=== PATIENT | female | born 1975 | race Caucasian/White ===

== ENCOUNTER 2018-01-03 18:35 | Emergency (ER) | payer BC, OTHER | END 2018-01-03 20:40 | disposition home or self-care (01) | LOC: MADERS 18:35 | DX: S39.82XA Other specified injuries of lower back, initial encounter (principal); F31.9 Bipolar disorder, unspecified; F17.210 Nicotine dependence, cigarettes, uncomplicated; X50.1XXA Overexertion from prolonged static or awkward postures, initial encounter; Z79.899 Other long term (current) drug therapy | CPT/HCPCS: 99406 ==

== ENCOUNTER 2020-10-27 17:45 | Emergency (ER) | payer BC, SELFPAY ==
[2020-10-27] MEDS ORDERED: HYDROcodone/Acetaminophen 5/325 mg Tablet ONE ×2 (19:23→21:11)
[2020-10-27] MEDS ORDERED: Ketorolac Tromethamine 30 MG/ML VIAL ONE (21:11)
== END 2020-10-27 21:41 | disposition home or self-care (01) ==
LOC: MADERS 17:45
DX: S30.0XXA Contusion of lower back and pelvis, initial encounter (principal); E03.9 Hypothyroidism, unspecified; F17.210 Nicotine dependence, cigarettes, uncomplicated; Z79.899 Other long term (current) drug therapy; W10.9XXA Fall (on) (from) unspecified stairs and steps, initial encounter
CPT/HCPCS: 74176; 96372; J1885

== ENCOUNTER 2023-04-29 11:56 | Emergency (ER) | payer SELFPAY ==
[2023-04-29] MEDS ORDERED: Ondansetron PF 4 MG/2 ML Vial ONE (13:00)
[2023-04-29] MEDS ORDERED: Sodium Chloride 0.9% 1,000 ML ONE (13:00)
[2023-04-29 13:03] LABS: #Basophils 0.1 thou/uL (0.0-0.2); #Eosinphils 0.1 thou/uL (0.0-0.7); #Lymphocytes 1.9 thou/uL (1.20-3.40); #Monocytes 0.3 thou/uL (0.11-0.59); #Neutrophils 6.3 thou/uL (1.40-6.50); %Basophils 1.1 % (0.0-1.0); %Eosinophils 0.8 % (0.0-10.0); %Lymphocytes 22.3 % (21.0-51.0); %Monocytes 3.9 % (0.0-10.0); Hematocrit 47.9 % (36.0-47.0); Hemoglobin 15.3 g/dL (12.0-16.0); Mean Corpuscular HGB CONC 31.9 g/dL (32.0-36.0); Mean Corpuscular Hemoglobin 31.8 pg (27.0-31.0); Mean Corpuscular Volume 99.8 fl (78.0-98.0); Mean Platelet Volume 10.8 fL (7.4-10.4); Platelet Count 228 10x3/uL (130-400); RBC Distribution Width 12.2 % (11.5-14.5); White Blood Cell (WBC) Count 8.7 10x3/uL (4.8-10.8)
[2023-04-29 13:17] LABS: ALT (SGPT) 30 U/L (8-55); AST (SGOT) 21 U/L (5-34); Albumin 4.7 g/dL (3.5-5.0); Alkaline Phosphatase 54 U/L (40-110); Anion Gap 14 mmol/L (10-20); BUN (Urea Nitrogen) 6 mg/dL (7.0-18.7); Bilirubin, Total 0.8 mg/dL (0.2-1.2); Calc. Creatinine Clearance 0 mL/min (70-130); Calcium 9.3 mg/dL (7.8-10.44); Carbon Dioxide 23 mmol/L (22-29); Chloride 109 mmol/L (98-107); Estimated GFR 102; Globulin 2.8 g/dL (2.4-3.5); Glucose 98 mg/dL (70-105); Lipase 10 U/L (8-78); Potassium 3.7 mmol/L (3.5-5.1); Protein, Total 7.5 g/dL (6.0-8.3); Sodium 142 mmol/L (136-145)
[2023-04-29 13:18] LABS: Troponin I Less than 0.010 ng/mL (< 0.028)
== END 2023-04-29 14:12 | disposition home or self-care (01) ==
LOC: MADERS 11:56
DX: K52.9 Noninfective gastroenteritis and colitis, unspecified (principal); R11.2 Nausea with vomiting, unspecified; E03.9 Hypothyroidism, unspecified; F17.210 Nicotine dependence, cigarettes, uncomplicated; Z79.899 Other long term (current) drug therapy
CPT/HCPCS: 74022; 80053; 83605; 83690; 84484; 85025; 93005; 96361; 96374; J2405; J7050

== ENCOUNTER 2023-07-11 12:44 | Emergency (ER) | payer BC, SELFPAY | END 2023-07-11 14:34 | disposition home or self-care (01) | LOC: MADERS 12:44 | DX: M50.30 Other cervical disc degeneration, unspecified cervical region (principal); F17.210 Nicotine dependence, cigarettes, uncomplicated; E03.9 Hypothyroidism, unspecified; S43.401A Unspecified sprain of right shoulder joint, initial encounter; Z79.890 Hormone replacement therapy; X58.XXXA Exposure to other specified factors, initial encounter | CPT/HCPCS: 72040 ==

== ENCOUNTER 2023-11-03 14:13 | Emergency (ER) | payer BC ==
[2023-11-03] MEDS ORDERED: fentaNYL 50 mcg/mL 1 mL Vial ONE (14:55)
== END 2023-11-03 15:48 | disposition home or self-care (01) ==
LOC: MADERS 14:13
DX: M25.511 Pain in right shoulder (principal); E03.9 Hypothyroidism, unspecified; F17.210 Nicotine dependence, cigarettes, uncomplicated
CPT/HCPCS: 96372; 99283; J3010